=== PATIENT | male | born 1985 | race Caucasian/White ===

== ENCOUNTER 2018-09-03 09:00 | Outpatient (RCR) | payer BC, SELFPAY ==
--- NOTE | 2018-09-03 09:05 | BH.SGPN.GN ---
Behaviors/Verbalizations/Mental Status: []Client alert and oriented, neatly dressed and groomed. Eye contact intense. Motor activity appropriate. Speech soft. Affect constricted, mood anxious. Thoughts linear, logical, no signs of hallucinations or delusions. Reviewed client?s symptom tracker, no risk for suicidal ideation, plan, or intent as of 09/03/18. Client Response/Progress/Benefit: []Client responded well to session, receptive to supportive statements, first day in IOP. Client reports feeling ?more up and less stressful? today. Client stated he dealt with mental health and substance use in the past, client is currently one and a half years sober. Client shared has been struggling with his mental health for over a month. Client reported ?I?ve been miserable...I don?t eat, I don?t leave my house, I have no energy.? Client received words of encouragement from peers which client seemed to appreciate. Client shared he also fears losing his job due to missing work for mental health reasons. Client reported he hopes IOP helps him find purpose and goals for life. Client appeared to benefit from gaining support from peers. Client to start IOP to improve mood and prevent decompensation.
--- NOTE | 2018-09-04 09:05 | BH.SGPN.GN ---
Behaviors/Verbalizations/Mental Status: [] Pt eye contact fair, casually dressed, motor activity restless, speech normal rate and tone, mood anxious, congruent affect, thoughts linear and logical, no evidence of delusions or hallucinations. Reviewed client?s symptom tracker, no signs of suicidal ideation, plan, or intent as of today. Client Response/Progress/Benefit: [] Client reported yesterday he left IOP feeling more optimistic. Client shared he was able to get more things accomplished after leaving [facility] yesterday because felt more motivated and positive. Client reported he recognizes having group to go to every morning is a good thing because he did have something to do he would just sleep the day away. Client shared prior to starting IOP he has been sleeping, isolating, not working and not functioning. Client seemed to benefit from support from peers and expressing thoughts and feelings. Client to continue IOP level of care to stabilize moods, increased healthy coping skills, and prevent decompensation. Narrative Note: []
--- NOTE | 2018-09-04 10:10 | BH.SGPN.GN ---
Behaviors/Verbalizations/Mental Status: []Client alert and oriented, neatly dressed and groomed. Eye contact intense. Motor activity appropriate. Speech within normal limits. Affect congruent-eyes looking tearful, mood anxious, dysthymic. Thoughts logical, but slow to respond to questions, no signs of hallucinations or delusions. Client Response/Progress/Benefit: []Client responded well to session, active participant. Client appeared to connect with the quote sharing, ?a tough situation can make someone learn and find positives.? Client identified crisis as an unforeseen situation with unresolved solutions. Client reported anything could be a crisis depending on one?s current life stressors and sometimes people do not use healthy coping skills when in crisis. Client stated everyone kaity and experiences crisis differently. Client selected a visual that represents client?s thoughts and emotions during crisis. Client shared in crisis he feels torn and ?like it?s hard to wrap my head around things.? Client also shared he feels loss of control, inconsistent, and lost. Client reflected that he has a hard time asking for help in crisis because client has always ?dealt with things on my own.? Client appeared to benefit from gaining insight to what crisis is like for him. Client?s second day in IOP, to continue to prevent decompensation and increase mood stability.
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
--- NOTE | 2018-09-04 16:34 | BH.MDN ---
Multi-Disciplinary Note - Note 60-min Individual Time Started:: 12:10 Date: 09/04/18 Purpose of session/treatment goals addressed:: Purpose of session was to assess pt's current symptoms and stressors. Spent session reflecting on first day in IOP and processing pt's current thoughts and emotions. Eye Contact:: Fair Motor Activity:: Restless Appearance:: Neat Speech:: Appropriate Mood:: Anxious, Depressed, Other - tearful Affect:: Congruent Thoughts:: Logical, Circular, No evidence of hallucinations/delusions noted Staff Interventions:: Therapist utilized open ended questions to elicit pt's current symptoms and stressors. Therapist processed pt's worries and concerns. Therapist provided support by validating pt's current emotions. Therapist assisted pt with focusing on what he can do today to help him move forward. Client Response:: Pt reported although it was overwhelming at first to be in a group setting it helped him be around others that are experiencing similar things to him. Pt shared although he was really anxious last night about coming to [facility], having something to do in the morning motivated him to get up and out of the house today. Pt reported for the past month he hasn't been doing much of anything besides sleeping. Pt shared he struggles with being able to get out of bed and inability to complete tasks for work. Pt tearful throughout session when reflecting on his past choices and how he hasn't felt content in his life for a long time. Pt reported in high school he started drinking heavily which continued until he sought treatment in 2017. Pt shared he sought help for his drinking when he couldn't go more than an hour and a half before needing a drink. Pt reported he was no longer funtioning, recognized he needed to get help or things would only get worse for him. Pt shared he is frustrated because he thought he was finally doing better since getting sober, but when the depressive symptoms came he again can't function. Pt recognizes getting help now can help him get back on his feet and move towards being content with his life. Pt reported his goal for today is to not take a nap and to follow through with picking his children up. Risks/Concerns:: Pt denies current suicidal thoughts, intention and plan. Pt future focused, children serve as protective factor. Progress Toward Goals/Plan:: No progress observed given first day in IOP, session focused on processing first IOP day, processing current emotions and thoughts, and identifying goals for the day. Pt to continue IOP level of care to improved mood stability, increase healthy coping skills, and prevent decompensation. Time Stopped:: 13:00
--- NOTE | 2018-09-05 10:49 | BH.NA ---
Physical Data - Vital Signs Pulse Rate: 72 Respiratory Rate: 14 Blood Pressure: 112/89 - Height/Weight Height: 1.75 m Weight:: 64.864 kg Weight in Pounds: 143.0 lbs Current Medication Compliance - Medication Compliance Do you take your medication as prescribed?: Yes Do you need assistance with taking medication?: No Have you had side effects from medication?: No Nutritional History - Appetite Nutritional Instructions:: If client shows signs of a swallowing problem, weight change of 10 pounds or more in the last month, or is on a diabetic diet, the physician will review and request a dietitian consult, as appropriate. All unintentional weight loss will be referred to the physician for decision on need for dietitian consult. Describe your appetite:: Fair Have you noticed a change in your eating habits lately?: Yes - appetite had been poor, but has noticed some improvement Functional Assessment - Sleep Pattern Describe any problems with sleeping: Client describes difficulty falling and staying asleep linked to rumination and racing thoughts. - Activities Motor Activity:: Functional Sensory/Communication Assess - Dental Problems Do you have any dental problems?: None - Vision Problems Do you have any vision problems?: None - Hearing Problems Do you have any hearing problems?: Adequate - Communication Problems Do you have difficulty understanding what people are saying?: No Do you have trouble putting your thoughts into words or expressing what you want to say?: No Do people ever have trouble understanding what you say?: No What is your primary language?: [place] Learning Assessment - Learning Barriers Learning Barriers:: Ready to learn Medical Problems/History - Cardiac Conditions Cardiovascular: Hypertension - Pain Assessment Do you have acute or chronic pain?: No Substance Abuse - Substance Abuse Please describe substance abuse in the last 30 days:: Client notes a significant history of ETOH dependence/abuse - has been sober 1y4m. Tobacco use of 1.5 cans chewing tobacco daily. Remote history of illicit substance use. Mental Status Summary - Mental Status Significant Findings/Observations on Appearance and Mood:: Client is A&Ox4, cooperative with interview. Makes good eye contact. Hyperactive. Neat grooming and hygiene. Speech is clear and of regular rate and volume. Moderate depression and anhedonia noted. Mood congruent affect. Logical associations and normal process. No symptoms of delusions. Denies hallucinations, HI, or SI. Suicide Assessment - Suicidal Ideation Are you currently or have you been suicidal in the past?: No Physician Notification: If Active suicidal thoughts/Will not contract for safety is checked, contact physician and document in the Physician Notification section below. Past Psychiatric History - MH Treatment Hx Past Psychiatric Medications:: trazodone, trintellex, paroxetine, celexa, topamax Fall Risk Assessment - Age Age: Less than 60 - Mental Status Mental Status: Willing & able to ask for assistance when needed - Physical Status Physical Status: No problems - Impairments Impairments: None - Elimination Elimination: Continent AND independent - Gait or Balance Gait or Balance: Walks independently - Hx of Falls History of falls in the past 6 months: No known history - Medications/Substances Psychotropics:: Antidepressants, Mood stabilizers, Antihistamines (e.g. Benadryl) Others:: Antihypertensives Medications/substances used within the past 24 hours or ordered to administer: 3 or more of the medications/substances listed above - Total Score Total Points:: 2 Physician Notification - Physician Notification Physician Notified: Zakiya Hilton Method of Notification: Face to Face Comments: treatment planning discussion and recommendation exchange RN Summary of Impressions - Impressions Recommendations: Include psychiatric and medical issues, treatment planning recommendations, and discharge planning needs. Impressions: Psychiatric Issues: bipolar 2, PTSD, ETOH dependence Impression: General Medical Conditions: HTN - Level of Care How do the client's current symptoms and functional deficits support need for this level of care?: Client endorses worsening of his mental health symptoms for about 1 year, but much worse the past 4 weeks. He notes that he is unable to concentrate on his work during the day, frequently losing focus and procrastinating. He works from home most of the time and finds that his motivation has been lacking recently too. Juaquin (RD) notes that most of his decompensation is due to his recent divorce and loss of custody of his child, he also endorses remorse and guilt regarding his ETOH abuse and the problems that caused in his relationships. IOP will help prevent further decompensation and promote gains.
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
--- NOTE | 2018-09-05 12:47 | BH.DR.ITP ---
Initial Treatment Plan - Patient Information Visit Information: ADMISSION DATE: EXPECTED LOS: 4-6 weeks Diagnoses:: Bipolar 2 - Problems/Symptoms Problem #1:: Mood instability Symptom:: Depression, anhedonia, isolation, biologic disruption of sleep and appetite Problem #2:: Anxiety Symptom:: Rumination Problem #3:: Substance use
--- NOTE | 2018-09-08 09:05 | BH.SGPN.GN ---
Behaviors/Verbalizations/Mental Status: [Client maintained good eye contact throughout, provided input to discussion. A few minutes late to group. Client was neat and casually dressed, appropriate grooming/hygiene. Motor activity WNL. Client speech was a normal rate and tone - positive, mood positive and optimistic - expressed as tired, affect congruent with mood, bright, thoughts linear and logical, no evidence of delusions or hallucinations. Therapist reviewed client?s symptom tracker to assess for intensity of mental health symptoms and identify risk for suicide. No signs of suicidal ideation, plan, or intent to date.] Client Response/Progress/Benefit: [Client was receptive of session and remained engaged in the discussion throughout. He indicated feeling tired today as client had a long but enjoyable weekend. He went on to explain that he had been able to have his kids overnight for the weekend which was something he had been a little anxious about doing. CLient discussed this being a positive experience as he has been wanting to further develop a relationship with his children. Client benefited from the supportive group environment and indicated connecting with experiences and frustrations fellow participants described related to setting healthy boundaries and limits with self and others. CLient continues to struggle in actively challenging and replacing some of his distorted thinking patterns however is displaying progress in willingness to begin improving overall mental health awareness and current barriers. Recommended continued IOP tx to prevent decompensation and continue to work towards improving mental health symptom management. ] Narrative Note: []
--- NOTE | 2018-09-08 10:30 | BH.SGPN.GN ---
Behaviors/Verbalizations/Mental Status: []Client alert and oriented, neatly dressed and groomed. Eye contact intense. Motor activity appropriate. Speech within normal limits. Affect congruent, mood anxious, euthymic Thoughts linear, logical, no signs of hallucinations or delusions. Client Response/Progress/Benefit: []Client responded well to session, active participant. Client reported one can have conflict with others or within oneself. Client reported internal conflict can lead to increased depression and negative thinking. Client identified barriers to resolving conflict such as perception, body language, and cognitive distortions. Client helped the group discuss the four different conflict resolution styles including when it is helpful and not helpful to use each style. Client shared he is happiest when he is the avoidant type, but client can ?go with the flow.? However, client recognizes he is mostly the accommodating type because he will keep his comments to himself and allow others to make decisions. Client shared he would like to become more collaborative. Client appeared to benefit from gaining awareness of how client?s current conflict resolution style impacts mental health and relationships. Client to continue IOP as he reports increase motivation, but continues to struggle with cognitive distortions and mood instability.
--- NOTE | 2018-09-08 11:35 | BH.SGPN.GN ---
Behaviors/Verbalizations/Mental Status: []Client alert and oriented, neatly dressed and groomed. Eye contact good. Motor activity appropriate. Speech within normal limits. Affect congruent, mood euthymic. Thoughts linear, logical, no signs of hallucinations or delusions. Client Response/Progress/Benefit: []Client responded well to session, active participant. Client participated in the group activity, sharing his thoughts and ideas in an assertive, respectful manner while taking others? ideas into consideration. Client stated listening to others, focusing on the main concern, and problem-solving positively impacts conflict resolution. Client helped the group identify strategies to more effectively manage conflict such as managing stress, focusing on one problem at a time, and active listening. Client to continue IOP as he reports reduced isolation, but he continues to struggle with mood instability and cognitive distortions.
--- NOTE | 2018-09-10 09:00 | BH.SGPN.GN ---
Behaviors/Verbalizations/Mental Status: [] Alert and oriented. Eye contact is good. Motor activity is appropriate. Appearance is neat. Speech is appropriate. Mood is anxious, and depressed. Affect is congruent. Thoughts are linear and logical. No hallucination or delusions noted. Client Response/Progress/Benefit: [] Pt was an active participant in group discussions. Emotion for today is clear-headed. Shared with the group that he has noticed some progress in the past 4 days. States that he feels like his thoughts are slower which has helped him complete tasks. Shared that he completed tasks that he had been avoiding (bills). Also reports more motivation and feeling more future-oriented. Reports that he is hopeful, however continues to report stress and negative thoughts. Also contemplating his relationship and whether it is beneficial to his mental wellness. Benefited from group support and feedback. Progress noted per pt report. Will continue in IOP to prevent decompensation, decrease depressive symptoms, and stabilize mood. Narrative Note: []
--- NOTE | 2018-09-10 10:15 | BH.SGPN.GN ---
Behaviors/Verbalizations/Mental Status: []Client alert and oriented, neatly dressed and groomed. Eye contact good. Motor activity appropriate. Speech within normal limits. Affect constricted, mood anxious. Thoughts linear, logical, no signs of hallucinations or delusions. Client Response/Progress/Benefit: []client responded well to session, taking notes and participating when prompted. Client contributed to discussion and activity of the emotions associated with change. Client helped the group identify ways emotions can positively and negatively impact the change process. Client seemed to connect with the stages of change, sharing belief he is in the ?transforming ideas? stage. Client reported ?I?m aware of the changes, but I?m not where I want to be.? Client appeared to benefit from processing how emotions and thoughts influence a person?s ability to manage change. Progress noted in client?s increased self-awareness, but he continues to struggle with managing depressive symptoms.
--- NOTE | 2018-09-10 15:34 | BH.MDN ---
Multi-Disciplinary Note - Note 60-min Individual Time Started:: 11:15 Date: 09/10/18 Purpose of session/treatment goals addressed:: Purpose of session was to assess pt's current symptoms and stressors. Other topics: identifying goals for treatment and gathering additional background information. Eye Contact:: Good Motor Activity:: Appropriate Appearance:: Neat Speech:: Appropriate Mood:: Anxious, Depressed Affect:: Congruent Thoughts:: Linear, Logical, No evidence of hallucinations/delusions noted Staff Interventions:: Therapist used open ended questions to elicit pt's current symptoms and stressors. Therapist processed recent progress with pt, assisting pt with identifying what has been helping him. Therapist elicited pt's thoughts about goals would like to focus on while in IOP. Therapist used probing questions to gather additional background information. Provided support by active listening and validating emotions. Client Response:: Pt reported the last couple days have been much better for him with increased productivity and reduced desire to sleep or isolate. Pt reported he has noticed his thoughts are slower and he can think more clear. Pt reported he thinks attending IOP is helping him because it gives him routine and a reason to get up in the morning. Pt reported while in IOP he'd like to work on stabilizing his moods so he doesn't have the extreme changes in moods. Pt stated he'd like to be able to get back to work and function at a productive level, versus cutting corners or lying as ways to deal with being unproductive. Pt shared he wants to decrease his depression so he doesn't sleep for 14+ hours a day and have no desire to do anything else. Pt shared he'd also like to decrease his anxiety which contributes to not wanting to get out of the house and avoiding certain tasks like making phone calls or visiting customers for his job. Risks/Concerns:: Pt denies suicidal ideation, plan or intention to date. Progress Toward Goals/Plan:: Progress noted AEB pt reporting decrease in racing thoughts and increased productivity during day. Pt early in treatment, session focused on identifying treatment goals. Pt to continue IOP level of care to stabilize moods, decrease depression, and prevent decopmensation. Time Stopped:: 12:10
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
--- NOTE | 2018-09-15 10:15 | BH.SGPN.GN ---
Behaviors/Verbalizations/Mental Status: []Client alert and oriented, neatly dressed and groomed. Eye contact good. Motor activity appropriate. Speech within normal limits. Affect congruent, mood euthymic. Thoughts linear, logical, no signs of hallucinations or delusions. Client Response/Progress/Benefit: []Pt contributed positively to discussion and listened attentively to others. Pt reported he tends to struggle with maintaining commitment to his supports, often will isolate and stop responding to his supports. Pt shared he tends to not use his support system despite knowing he has people that would be there for him if he just asked. pt identified one barrier for him that keeps him from reaching out to others to be his pride, not wanting others to know his struggles. Pt seemed to benefit increasing awareness of positive qualities of support people. Narrative Note: []
--- NOTE | 2018-09-15 11:15 | BH.SGPN.GN ---
Behaviors/Verbalizations/Mental Status: []Client alert and oriented, casually dressed and neatly groomed. Eye contact good. Motor activity appropriate. Speech within normal limits. Affect congruent. Mood anxious. Thoughts linear, logical, no signs of hallucinations or delusions. Client Response/Progress/Benefit: []Pt contributed thoughts and ideas to discussion, took notes throughout session and listened to others. Pt able to identify benefits to each of the types of support discussed. Pt reported he struggles with communicating to his support people which results in pt isolating and not using the help of others. Pt reported he will focus on building his professional help so he has something in place for when he discharges from IOP. Pt seemed to benefit from learning about the different type of support. Pt to continue IOP level of care to maintain gains, increase generalization of skills, and prevent decompensation. Narrative Note: []
--- NOTE | 2018-09-15 14:35 | BH.MDN ---
Multi-Disciplinary Note - Note 30-min Individual Time Started:: 09:20 Date: 09/15/18 Purpose of session/treatment goals addressed:: Purpose of session was to assess pt's current symptoms and stressors. Other topics: psychoeducation about distorted and unhealthy thought patterns. Eye Contact:: Fair Motor Activity:: Appropriate Appearance:: Neat Speech:: Appropriate Mood:: Anxious, Depressed Affect:: Constricted Thoughts:: Linear, Logical, No evidence of hallucinations/delusions noted Staff Interventions:: Therapist utilized open ended questions to elicit pt's current symptoms and stressors. Therapist processed current stressor of living situation. Therapist provided psychoeducation about cognitive triange, assisting pt with understanding the connection between thoughts and feelings. Therapist provided homework for pt to complete basic thought record. Provided support by using active listening and validating emotions. Client Response:: Pt reported he is feeling stressed about current situation with his living situation because he asked his ex-girlfriend to move out of his house since they broke up. Pt stated his ex will not move out, which resulted in pt filing eviction papers. Pt open to discussion about different ways to communiate with his ex-girlfriend so he doesn't increase conflict between the two. Pt connected with the cognitive triangle, able to recognize how the way he thinks can maintain his negative and unhealthy coping skills. Pt identified a unhealthy thought he often has is I don't want to call my friends back because they will think less of me for needing mental health help. Pt connected this thought results in him feeling anxious and avoiding making any phone calls to friends. With assistance pt able to reframe anxious thought to a more realistic thought. Pt agreeable to complete thought log for homework to increase awareness of his unhealthy thinking patterns. Risks/Concerns:: Pt denies suicidal ideation, plan or intention to date. Progress Toward Goals/Plan:: Pt making progress AEB pt recognizing his relationship was unhealthy and taking steps to end relationship. also showing increased awareness into how his thoughts impact his anxious and depressed moods. Pt continuing to struggle with reaching out to peers for support due to distorted and anxious thoughts related to fear of being judged. Pt to continue IOP level of care to stabilize moods, increase healthy coping, and prevent decompensation. Time Stopped:: 09:50
--- NOTE | 2018-09-17 11:47 | BH.MTP_ITS ---
[facility] - Patient Information Program Physician:: Dr. Hilton Primary Therapist:: Kyung Hong, [facility] - Psychiatric Diagnoses Psychiatric Diagnoses:: Bipolar 2 disorder-cannot rule out substance-induced mood disorder. Anxiety. PTSD. Alcohol use disorder-remission. Nicotine use disorder (chewing tobacco) Diagnosis Code(s):: F31.81 - Estimated LOS Estimated LOS (in weeks):: 6 Problem/Goal #1 - Problem/Goal #1 Stated Goal:: Client will increase mood stability, decrease depressive symptoms, and isolative behaviors due to Bipolar II disorder through Intensive Outpatient Program. Description of Barriers: Pt's isolative behavior, distorted thought patterns, increased sleeping, decreased motivation, and constant worry could be barriers to progress and treatment. Functional Impact: Pt not functioning at baseline AEB pt not completing ADL's, sleeping majority of day, not able to complete tasks at work. Pt on FMLA from work due to mental health symptoms interferring with ability to fucntion. Pt's isolative behaviors have negatively impacted his social connections and relationships. Goal Relevant Strengths/Supports: Pt is intelligent, resilient, and verbalizes motivation to get better. - Objectives Objective #1 Stated Objective: Client will learn and utilize 2-3 healthy coping strategies to manage depressive symptoms. Interventions: Therapist will assist client in learning internal coping strategies to manage depressive symptoms, along with helping client identify triggers. Discharge Criteria: Client will have achieved this goal when can verbalize and has practiced at least 2 healthy coping strategies. Target Date: 10/15/18 Review Date: 10/01/18 Objective #2 Stated Objective: Pt will decrease depressive and manic symptoms AEB pt?s score on the DSM 5 cross-cutting measure and improve pt?s daily functioning. Interventions: Through groups and individual therapy, pt will be provided with education on cognitive distortions, mistaken beliefs, and identifying and combating negative self-talk. Therapist will assist pt with getting back into the activities she once enjoyed as well as increasing healthy coping strategies. Discharge Criteria: Pt will have met this goal when pt?s score on the DSM 5 cross cutting measure for depression and nell has been decreased and per pt?s report daily functioning has improved. Target Date: 10/15/18 Review Date: 10/01/18 Problem/Goal #2 - Problem/Goal #2 Stated Goal:: Stabilize anxiety level while increasing ability to function on daily basis. Description of Barriers: Pt's isolative behavior, distorted thought patterns, increased sleeping, decreased motivation, and constant worry could be barriers to progress and treatment. Functional Impact: Pt not functioning at baseline AEB pt not completing ADL's, sleeping majority of day, not able to complete tasks at work. Pt on FMLA from work due to mental health symptoms interferring with ability to fucntion. Pt's isolative behaviors have negatively impacted his social connections and relationships. Goal Relevant Strengths/Supports: Pt is intelligent, resilient, and verbalizes motivation to get better. - Objectives Objective #1 Stated Objective: Client will identify and replace 2-3 anxious thinking patterns that reinforce anxious symptoms. Interventions: Therapist will assist client in developing an awareness of the cognitive messages that reinforce anxious thinking. Therapist will also assist client in challenging anxious thinking patterns. Discharge Criteria: Client will have achieved this goal when can identify at least 2 anxious thinking patterns, replace anxious thinking with more positive, rational messages. Target Date: 10/15/18 Review Date: 10/01/18 Objective #2 Stated Objective: Pt will decrease anxious symptoms AEB pt?s score on the DSM 5 cross-cutting measure improve pt?s daily functioning. Interventions: Through groups and individual therapy, pt will be provided education about anxiety?s impact on body and common physiological reaction to anxiety. Therapist will teach pt appropriate breathing techniques and build healthy coping skills to manage daily anxieties. Discharge Criteria: Pt will have met this goal when pt?s score on the DSM 5 cross cutting measure for anxiety has been decreased and per pt?s report daily functioning has improved. Target Date: 10/15/18 Review Date: 10/01/18
--- NOTE | 2018-09-17 14:46 | BH.COMM ---
Communication Note - Communication with Client Communication Note: Did not show for IOP today. Called pt and he reports that he fell asleep. Will be at IOP tomorrow.
--- NOTE | 2018-09-18 09:05 | BH.SGPN.GN ---
Behaviors/Verbalizations/Mental Status: [] Eye contact is good. Motor activity is appropriate. Appearance is neat. Speech is Appropriate. Mood is depressed. Affect is flat. Thoughts are linear and logical. No evidence of psychosis. Reviewed daily check in sheet and no reports of suicidal ideations or intent. Client Response/Progress/Benefit: [] Pt was quiet however attentive during group. Spoke only when prompted. Emotion for today was optimistic however reported that yesterday had overwhelming depression which led to isolation and laying in bed all day. Would not elaborate more on this and therapist did not pry. Group praised him for showing up today. Regression noted as he isolated, ruminated, and avoided responsibilities yesterday due to depression. Benefited from group support and encouragement. Will continue in IOP to prevent further decompensation, stabilize depression, and increase functioning to return to work. Narrative Note: []
--- NOTE | 2018-09-18 10:12 | BH.SGPN.GN ---
Behaviors/Verbalizations/Mental Status: []Client alert and oriented, neatly dressed and groomed. Eye contact intense. Motor activity appropriate. Speech within normal limits. Affect constricted, mood anxious. Thoughts linear, logical, no signs of hallucinations or delusions. Client Response/Progress/Benefit: []Client responded well to session, quiet, but taking notes throughout. Client discussed coping skills with the group and how one develops coping skills. Client stated people use unhealthy coping skills because they provide instant gratification and are easier to remember. Client shared developing healthy coping skills takes time and self-awareness. Client participated in a group activity. Client shared having a strong foundation of internal and external coping skills can keep a person stable. Client shared his foundation is not yet sturdy as client needs more internal coping skills. Client appeared to benefit from learning about how one learns coping skills and from recognizing the importance of having internal and external coping skills. Client progress variable as he continues to report low motivation, depressed mood, and issues with sleep.
--- NOTE | 2018-09-18 11:10 | BH.SGPN.GN ---
Behaviors/Verbalizations/Mental Status: []Client alert and oriented, neatly dressed and groomed. Eye contact poor. Motor activity appropriate. Speech within normal limits- making inappropriate side comments at times. Affect congruent, mood anxious. Thoughts linear, logical, no signs of hallucinations or delusions. Client Response/Progress/Benefit: []Client responded well to session, quiet, but taking notes. Client listened as the group discussed the different categories of coping skills and the purpose each one serves in managing mental health symptoms. Client created a coping skills menu with a coping skill from each category- distraction, grounding, emotional release, self-love, and thought challenge. Client?s menu included: reading, being in nature, learning about birds, the 5 senses, self-care, and radical acceptance and avoiding negative people. Client stated having a variety of coping skills helps one more effectively manage emotions. Client appeared to benefit from gaining numerous coping skills and learning the pros and cons of each coping skill category. Client to continue IOP to prevent decompensation and reduce depressive symptoms.
--- NOTE | 2018-09-22 09:03 | BH.SGPN.GN ---
Behaviors/Verbalizations/Mental Status: [Client maintained fair eye contact, casually and neatly dressed, motor activity WNL - at times appearing restless AEB bouncing legs, speech normal rate and tone, mood anxious, depressed, affect congruent, constricted at times, thoughts linear and logical, no evidence of delusions or hallucinations. Therapist reviewed client?s symptom tracker to assess for intensity of mental health symptoms and identify risk for suicide. No signs of suicidal ideation, plan, or intent to date.] Client Response/Progress/Benefit: [Client arrived late to session however did well to engage upon doing so. Client indicated that he was able to connect well with the various stories shared by fellow participants regarding difficulties in using healthy means for coping mental health symptoms. Benefited from the shared group experience as well as being able to connect with fellow participants. Client indicated specifically connecting with fellow participants who are struggling with substance use. Client discussed previously relying on alcohol as a means of coping with anxiety and although he is no longer utilizing substances he continues to struggle with unhealthy means for coping. Client went on to explain recent increase in isolation as well as staring at the computer screen when feeling increasingly depressed or anxious. Client indicated that he believes current difficulties with falling asleep and maintaining sleep have negatively contributed to current mental health status. Displaying progress regarding increased levels of insight related to factors and potential triggers contributing to increased anxiety and depression; however, continues to struggle with effective implementation of healthy skills identified. Client recommended continued IOP treatment in order to further improve healthy management of mental health symptoms.] Narrative Note: []
--- NOTE | 2018-09-22 10:32 | BH.SGPN.GN ---
Behaviors/Verbalizations/Mental Status: [] Pt eye contact good, casually dressed, motor activity appropriate, speech normal rate and tone, mood anxious and depressed, congruent affect, thoughts linear and intact, no evidence of delusions or hallucinations. Client Response/Progress/Benefit: [] Client listened attentively to others, contributed his ideas and thoughts at times to discussion. Client could relate to others that believing a situation or opportunity is something that is impossible to do could result in nothing changing. Client reported he can think of several situations in which he thought it was impossible to overcome difficulties, which resulted in him holding himself back. Client connected with the idea of having a growth mindset because client stated helps to see the differences between growth and fix mindsets. Client seemed to benefit from increased awareness of what growth mindset is and how it could be beneficial with overcoming what appears to be impossible. Narrative Note: []
--- NOTE | 2018-09-22 11:37 | BH.SGPN.GN ---
Behaviors/Verbalizations/Mental Status: [] Pt eye contact good, casually dressed, motor activity appropriate, speech normal rate and tone, mood euthymic, congruent affect, thoughts linear and intact, no evidence of delusions or hallucinations. Client Response/Progress/Benefit: []Client listened attentively to others, took notes throughout, and contributed thoughts to discussion. Pt identified overcoming addiction to be something that seemed impossible, but with support and asking for help he was able to get sober. Pt contributed ideas when brainstorming strategies and skills to overcome what seems impossible. Client reported he connected with need to be aware of negative thought patterns and work on reframing. Pt seemed to benefit from reflecting on past situations he was able to overcome despite seeming impossible at the time. Pt to continue IOP level of care to stabilize moods, increase generalization of skills, and prevent decompensation. Narrative Note: []
--- NOTE | 2018-09-23 13:50 | BH.COMM ---
Communication Note - Communication with Client Communication Note: Client no show no called IOP today. Therapist called left message asking client to return phone call to ensure everything is okay.
--- NOTE | 2018-09-24 09:10 | BH.SGPN.GN ---
Behaviors/Verbalizations/Mental Status: [] Eye contact is good. Motor activity is appropriate. Appearance is neat. Speech is Appropriate. Mood is anxious and depressed. Affect is congruent. Thoughts are linear and logical. No evidence of psychosis. Reviewed daily check in sheet and no reports of suicidal ideations or intent. Client Response/Progress/Benefit: [] Pt spoke very little and only when prompted. Appeared distracted and distant however reported emotion for today is excited. Shared a positive is that he completed some household tasks yesterday which included laundry. Another positive he reported was in regards to the weather. He choose not to elaborate on anything else for this group session. No progress noted and body language appears incongruent with reported mood. Will continue in IOP to improve functioning, prevent decompensation, and stabilize mood. Narrative Note: []
--- NOTE | 2018-09-24 10:10 | BH.SGPN.GN ---
Behaviors/Verbalizations/Mental Status: [] Pt eye contact good, casually dressed, motor activity appropriate, speech normal rate and tone, mood anxious, congruent affect, thoughts linear and intact, no evidence of delusions or hallucinations. Client Response/Progress/Benefit: []Pt engaged in session AEB pt sharing thoughts and feelings and listened attentively to others. Pt connected with the quote reported fears we don't face become our limits. Pt stated if we can't make change because of fear then we will stay stuck. Pt shared the following are things that keep him stuck: self-destructive behavior, avoidance of problems, guilt from past, fear of unknown, current living situation, not wanting to leave comfort zone, difficulty concentrating, minimizing problems, and lack of confidence in decision. Pt identified self-destructive behavior to be keeping him stuck the most. Pt seemed to benefit from increased awareness of what is contributing to pt staying stuck and not moving forward. Narrative Note: []
--- NOTE | 2018-09-24 11:15 | BH.SGPN.GN ---
Behaviors/Verbalizations/Mental Status: [] Pt eye contact good, casually dressed, motor activity appropriate, speech normal rate and tone, mood anxious, congruent affect, thoughts linear and intact, no evidence of delusions or hallucinations. Client Response/Progress/Benefit: [] Pt listened attentively to others and was engaged in creating small goals for the next couple of weeks. Pt reported for his plan he is focusing on increasing self-care. Pt shared his first small goal is to read 3 educational articles a day to help him grow professionally. Pt reported his second small goal is to exercise three times a week to improve health, increase self-confidence, and view of self. Pt shared third small goal will be to decrease hurtful comments says to others by writing the statements down and throwing away. Pt stated the last goal he will focus on is to remove toxic relationships from his life. Pt seemed to benefit from creating small goals he can focus on throughout the month. Pt to continue IOP level of care to decrease anxiety, improve daily functioning and prevent decompensation. Narrative Note: []
--- NOTE | 2018-09-25 09:05 | BH.SGPN.GN ---
Behaviors/Verbalizations/Mental Status: []Client alert and oriented, neatly dressed and groomed. Eye contact intense. Motor activity appropriate. Speech within normal limits. Affect constricted, mood dysthymic. Thoughts linear, logical, no signs of hallucinations or delusions. Reviewed client?s symptom tracker, no risk for suicidal ideation, plan, or intent as of 09/25/18. Client Response/Progress/Benefit: []Client responded well to session, quiet and appearing low energy, but participating when prompted. Client reports feeling ?neutral? today. Client identified two positives and a stressor for today. Client?s positives include not having to pay for his car yet and making into group ?closer to being on time.? Client?s stressor is his car is in the shop. When asked how client was progressing with his goals and managing symptoms, client shared ?I still have problems, but I think I?m coping.? Client appeared to benefit from reflecting on positives. Client to continue IOP to prevent decompensation and increase mood stability as client continues to struggle with sleep issues and isolation.
--- NOTE | 2018-09-26 09:01 | BH.SGPN.GN ---
Behaviors/Verbalizations/Mental Status: [Client maintained fair eye contact - appearing easily distracted throughout, often around rooms at various things. Casually and neatly dressed, appropriate grooming/hygiene. Motor activity restless - appearing on edge or agitated - AEB Client tensed muscles, shaking legs, picking at face. Client speech was a normal rate and tone, mood anxious, agitated, affect congruent with mood, thoughts linear aand logical - content appearing preoccupied in nature - distracted by own thoughts, no evidence of delusions or hallucinations. Therapist reviewed client?s symptom tracker to assess for intensity of mental health symptoms and identify risk for suicide. No signs of suicidal ideation, plan, or intent to date.] Client Response/Progress/Benefit: [Client receptive of session and appeared to benefit from actively trying to focus on other participants check-ins. He appeared distracted by his own thoughts and indicated ongoing struggles with getting enough sleep as well as feeling unable to focus fully as he has been focused on a the urge to pick at newly developed acne on his face. CLient indicated finding the urge to currently be preoccupying a portion of his thoughts. Client was able to somewhat focus and provide input when given prompts. Client discussed ongoing difficulties in establishing a suitable custody plan with his ex- that will allow client to avoid ongoing stress and arguing well also ensuring his children become used to his home. Client did well to identify ways he has been focusing on the small positives and indicated he has been able to focus on the moment when spending time with his children. Client however continues to express difficulties in managing depressive sx when alone duen to lack of motivation or desire and would benefit from continued IOP tx to improve identification and application of healthy means for coping.] Narrative Note: []
--- NOTE | 2018-09-26 10:12 | BH.SGPN.GN ---
Behaviors/Verbalizations/Mental Status: []Client alert and oriented, neatly dressed and groomed. Eye contact avoidant. Motor activity slowed. Speech within normal limits. Affect congruent to mood, mood anxious, depressed. Thoughts linear, logical, no signs of hallucinations or delusions. Client Response/Progress/Benefit: []Client responded somewhat well to session, less engaged than previous sessions, sharing ?I feel really off today.? Client reported some stress is positive, but too much stress can lead to increased depression, anxiety, and physical problems. Client helped the group discuss how stress impacts a person emotionally, physically, behaviorally, and cognitively. Client identified current stressors in his stress jar to be family and relationship issues, dealing with his mother, managing mental health, procrastination, change, and money. Client shared his stress jar is full which has been impacting his sleep and concentration. Client appeared to benefit from identifying current stressors and how they are impacting client. Progress variable as client continues to struggle with chronic sleep issues.
--- NOTE | 2018-09-26 13:38 | BH.MDN ---
Multi-Disciplinary Note - Note 60-min Individual Time Started:: 11:05 Date: 09/26/18 Purpose of session/treatment goals addressed:: Purpose of session was to assess pt's current symptoms and stressors. Other topics: challenging distorted thought patterns and goal setting. Eye Contact:: Fair Motor Activity:: Appropriate Appearance:: Neat Speech:: Appropriate Mood:: Anxious, Dysthymic Affect:: Congruent Thoughts:: Logical, No evidence of hallucinations/delusions noted Staff Interventions:: Therapist used open ended questions to elicit pt's current symptoms and stressors. Therapist probed for more information in regards to recent symptoms. Therapist provided psychoeducation about impact lack of sleep can have on functioning. Therapist gently challenged pt's distorted thought patterns, assisted pt with reframing. Therapist assisted pt with identifying goals for the weekend. Therapist provided support by using active listening and validating emotions. Client Response:: Pt reported I'm really struggling today. Pt explained he feels easily distracted, slow to process, and not like myself. Pt shared he has only been able to sleep about 3 hours per night this week. Pt reported he can't fall asleep, but doesn't know why. Pt connected with therapist psychoedcuation about impact not enough sleep can have on functioning. Pt reported despite not getting enough sleep he often will have plenty of energy throughout the day and is often restless. Pt stated he can't sit down and watch a tv show, constantly needs to do something that is stimulating. Pt reported he hasn't been able to complete his goal of reading 3 articles a day that are unrelated to what is wrong with me. Pt reported he can connect with the potential problems that could ensue if he continues to research disorders. After therapist noted the pt's reaction in group on Saturday about getting ink on his hands, pt noted for the past several weeks he has an obsession with needing his hands to be clean. Pt reported when he feels his hands are unclean or sweaty he has to wash them, estimated he is washing his hands 20+ times a day. Pt noted other obsessive behavior he has, mostly to do with cleaning. Pt stated he thinks some of this excessive behavior is due to not having anything to do throughout the day. Pt worked with therapist to identify areas in his life that he would like to focus on. Pt shared he would like to work on increasing his social connections because right now he is ignoring anyone that calls him. Pt reported his goal is to reach out to one friend over the weekend. Pt shared he also wants to find hobbies that are unrelated to drinking alcohol. Pt open to researching various events and activities in the area that he would be willing to try. Risks/Concerns:: Pt denies suicidal ideation, plan, or intention to date. Pt future focused. Children serve as protective factor. Progress Toward Goals/Plan:: Pt continuing to show progress with decreased sleep, avoidance, and isolative behaviors. Pt decompensating in certain areas AEB pt reporting decreased mood stability, difficulty focusing, and decreased sleep. Pt struggling with consistently applying skills which seems to be hindrance to treatment progress. Pt to continue IOP level of care to improve mood stability, increase healthy coping skills, and prevent decompensation. Time Stopped:: 12:05
--- NOTE | 2018-09-29 09:05 | BH.SGPN.GN ---
Behaviors/Verbalizations/Mental Status: []Client alert and oriented, neatly dressed and groomed. Eye contact intense. Motor activity restless-picking at his face. Speech within normal limits. Affect constricted, mood anxious, fatigued. Thoughts linear, logical, no signs of hallucinations or delusions. Reviewed client?s symptom tracker, no risk for suicidal ideation, plan, or intent as of 09/29/18. Client Response/Progress/Benefit: []Client responded somewhat well to session, picking at his face and appearing preoccupied as shown by his staring. Client reported feeling ?neutral? today at first, but then with further exploration, client shared he feels detached today. Client identified stressors to be ongoing sleep issues and worrying that his medication will cause a rash as client researched this could be a side effect. Client stated he has been picking his face because of this worry. The group discussed selective bias when researching and encouraged client to challenging these anxious thoughts, so he does not continue to pick his face. Client?s positive from the weekend was spending time with his children. Client appeared to benefit from challenging negative thinking during session. Progress variable as client continues to report ongoing sleep issues and difficulty managing his intrusive thoughts.
--- NOTE | 2018-10-01 09:10 | BH.SGPN.GN ---
Behaviors/Verbalizations/Mental Status: [] Eye contact is good. Motor activity is appropriate. Appearance is neat. Speech is Appropriate. Mood is anxious. Affect is congruent. Thoughts are linear and logical. No evidence of psychosis. Reviewed daily check in sheet and no reports of suicidal ideations or intent. Client Response/Progress/Benefit: [] Pt was an active participant in group discussion. Provided appropriate feedback to peers. Emotions for today is positive States I'm moving closer to kicking my GF out of the apartment. States that he is currently living with his parents and his GF is at the apartment. Relationship is increasingly conflicted and her anger and behaviors are escalating so pt choose to move out. He has spoken with police and started the process to evict her from the apartment. Also discussed other stressors regarding ex- which continue to effect mood. Progress noted as he is starting to set boundaries and take action in toxic relationship. Benefited from group support. Will continue in IOP to stabilize mood and improve functioning to return to work. Narrative Note: []
[2018-10-03 14:23] VITALS: BP 112/89; PULSE 72; RESP 14
== END 2018-10-01 23:59 ==
LOC: BHIOP 09:00
PROVIDERS: Visit Provider Psychiatry & Neurology Psychiatry
DX: F31.81 Bipolar II disorder (principal); F41.9 Anxiety disorder, unspecified; F43.10 Post-traumatic stress disorder, unspecified; F17.220 Nicotine dependence, chewing tobacco, uncomplicated
CPT/HCPCS: H0035; 90832; 90837; 90853

== ENCOUNTER 2018-10-02 09:00 | Outpatient (RCR) | payer BC, SELFPAY ==
--- NOTE | 2018-10-02 09:00 | BH.SGPN.GN ---
Behaviors/Verbalizations/Mental Status: [] Pt eye contact good, neatly dressed, motor activity appropriate, speech normal rate and tone, mood dysthymic, congruent affect, thoughts linear and intact, no evidence of delusions or hallucinations. Reviewed client?s symptom tracker, no signs of suicidal ideation, plan, or intent as of today. Client Response/Progress/Benefit: [] Client reported he did not do too much yesterday besides go home after IOP and talked to his parents about his current living situation. Client shared the person that has been living with him is refusing to leave his house despite verbally asking her to leave and filing for eviction. Client stated on Saturday this individual raised her voice while client's children were visiting, client stated this crossed the line because he wants a peaceful home for his children. Client only able to identify one positive which was budgeting his ardha appropriately which resulted in decreased anxiety. Client continuing to struggle with utilizing his skills on a consistent basis. Client to continue IOP level of care to stabilize moods, improve daily functioning and prevent decompensation Narrative Note: []
--- NOTE | 2018-10-02 10:02 | BH.SGPN.GN ---
Behaviors/Verbalizations/Mental Status: []Client alert and oriented, neatly dressed and groomed. Eye contact fair. Motor activity restless, picking at his face. Speech within normal limits. Affect constricted, mood anxious. Thoughts preoccupied, no signs of hallucinations or delusions. Client Response/Progress/Benefit: []Client responded well to session, engaged throughout. Client appeared to connect with the quote sharing a personal experience where he turned a weakness into a strength. Client discussed self-placed barriers that keep people from reaching goals such as procrastination. Client created a visual representation of his current and desired realities in regards to mental wellness. In client?s current reality, client is stuck in the middle of several different paths and does not know what direction to take. Client shared he can see his past poor decisions and what he thought was happiness but turned out to be fake or ?p[place] happy.? Client?s desired reality depicts client picking a path to ?love, stability, satisfaction, and purpose.? In client?s desired reality he is closer to his children and there is no dishonesty. Some aspects of client?s desired reality were unrealistic such as having unlimited money, but client was receptive to gentle challenging. Client appeared to benefit from gaining awareness of what his current and desired realities look like. Client to continue IOP as he continues to struggle with internal conflict and mood instability.
--- NOTE | 2018-10-02 11:07 | BH.SGPN.GN ---
Behaviors/Verbalizations/Mental Status: []Client alert and oriented, neatly dressed and groomed. Eye contact good. Motor activity appropriate. Speech within normal limits. Affect brighter-laughing and smiling, mood anxious. Thoughts preoccupied, no signs of hallucinations or delusions. Client Response/Progress/Benefit: []Client responded well to session, engaged and providing ideas. Client identified barriers in client?s control that are keeping him from getting to his desired reality such as avoiding issues and excessive change leading to confusion. Client engaged in the group activity and was able to develop strategies to help overcome these barriers. Client reflected on the activity and shared ?it?s impossible to go through life without hitting barriers? but with problem-solving and different perspectives, one can overcome them. Client set a goal to overcome the barrier of avoiding issues. Client?s goal is ?to have what I say go? and not have to compromise. Client appeared to benefit from problem-solving strategies to overcome barriers in the moment. Progress variable as client continues to struggle with mood instability, internal conflict, and negative thought patterns.
--- NOTE | 2018-10-03 10:10 | BH.SGPN.GN ---
Behaviors/Verbalizations/Mental Status: [] Pt eye contact good, casually dressed, motor activity appropriate, speech normal rate and tone, mood dysthymic, constricted affect, thoughts linear and intact, no evidence of delusions or hallucinations. Client Response/Progress/Benefit: []Pt listened attentively to others and contributed thoughts and feelings throughout group. When processing the quote pt connected with others comments that it can be hard to bounce back from failure, especially if just dwell on the failure as shown by pt nodding his head. When processing the activity pt connected it's important to not give up because even when he fails he is one step closer to finding the correct solution to help him move forward in life. Pt seemed to benefit from increased awareness of impact fear of failing can have on mental health. Narrative Note: []
--- NOTE | 2018-10-03 11:10 | BH.SGPN.GN ---
Behaviors/Verbalizations/Mental Status: [] Pt eye contact good, casually dressed, motor activity appropriate, speech normal rate and tone, mood dysthymic, constricted affect, thoughts linear and intact, no evidence of delusions or hallucinations. Client Response/Progress/Benefit: []Pt active participant AEB pt listening attentively to others and contributing to discussion. Pt reported he wants to change his definition of failure to be progress towards my desired position and a way of identifying what doesn't work. Pt reported past failures have taught him that he is capable of making the needed adjustments to succeed. Pt reported fear of failure is currently holding him back from making decisions in an effort to succeed because of knowing the consequence of failing again. Pt reported he can do the following to help him overcome fear of failure by reminding himself even if he fails he is still capable of trying again. Pt seemed to benefit from increased awareness of how fear has impacted him and learning different strategies that can help him overcome fear. Pt to continue IOP level of care to stabilize moods, improve daily functioning, and prevent decompensation. Narrative Note: []
--- NOTE | 2018-10-03 15:23 | BH.MDN_ITS ---
Multi-Disciplinary Note - Note 30-min Individual Time Started:: 09:20 Date: 10/03/18 Purpose of session/treatment goals addressed:: Purpose of session was to assess current symptoms and stressors. Other topics included: review homework from last session, progress, and review negative thought patterns. Eye Contact:: Fair Motor Activity:: Restless Appearance:: Neat Speech:: Appropriate Mood:: Anxious, Dysthymic Affect:: Congruent Thoughts:: Linear, Logical, No evidence of hallucinations/delusions noted Staff Interventions:: Therapist used open ended questions to elicit pt's current symptoms and stressors. Therapist inquired about homework from last session. Therapist elicited pt's current thoughts about treatment progress and thoughts on treatment goals. Therapist assisted pt with challenging and reframing distorted thoughts. provided support by using active listening. Client Response:: Pt reported he completed his homework from last session, but forgot to bring it from home. Pt shared he remembers that he identified reestablishing relationships as one of his top values he would like to get back to doing. Pt reported he is continuing to struggle with reaching out to his support network. Pt shared he has numerous missed calls from my core buddies, but will not call the friends back. Through exploration of barriers pt identified his barrier to be i'm afraid they will think I am crazy. Pt connected the impact his negative thoughts have on his emotions and behavior. Pt also reported he likes to appear to be doing well and in control, which he stated I don't feel I'm in control right now. Pt shared he likes the external validation that he is successful. Pt reported his living situation is a stressor because the ex-girlfriend won't leave his house. Pt stated if she doesn't leave today he will follow through with legal action to get her removed. Pt shared he recognizes now how the relationship filled a void, but was never healthy. Pt reported he does see progress compared to when he first started IOP. Pt stated he has increased awareness of his symptoms, insight into what is keeping him stuck, increased clarity, improved decision making and direction in life. Pt reported he'd like to focus on increasing his social engagement, instead of ignoring others. Pt agreeable to keep a though record to gain awareness if his thoughts are contributing to him not following through with calling back his f riends. Risks/Concerns:: Pt denies SI, plan or intention to date. Progress Toward Goals/Plan:: Pt deomnstrating progress AEB pt stating he has increased clarity, improved awareness, decreased sleeping during day, improved mood stability, and direction for his future. Pt continuing to struggle with isolative behaviors, intrusive thought patterns, and difficulty following through with established goals. Pt to contine IOP level of care to stabilize mood, decrease anxiety adn prevent decompensation. Time Stopped:: 10:00
--- NOTE | 2018-10-03 20:58 | BH.TPR ---
Treatment Plan Review Date of Admission:: 09/03/18 Date of Treatment Plan Review:: 10/03/18 Admitting Diagnoses:: Bipolar 2 disorder-cannot rule out substance-induced mood disorder. Anxiety. PTSD. Alcohol use disorder-remission. Nicotine use disorder (chewing tobacco) Current Diagnoses:: Bipolar 2 disorder-cannot rule out substance-induced mood disorder. Anxiety. PTSD. Alcohol use disorder-remission. Nicotine use disorder (chewing tobacco) Patient's Response to Treatment:: Pt engagement is variable throughout group and individual therapy sessions. At times pt will be actively engaged, contributing his thoughts and ideas to discussion and other times he is a passive participant. Pt's attendance has been a barrier to treatment progress, either to sleeping in or forgetting to attend. Pt is inconsistent with completing assigned homework from individual and group sessions. Pt continues to struggle with applying skills he has learned while in IOP. Status of Current Problems and Symptoms: Limited progress due to attendance issues and inconsistent application of skills learned. Pt struggles with managing his intrusive anxious thoughts. He continues to engage in researching medications which pt recognizes increases his anxiety and instrusive thoughts. Pt verbalizes desire to reconnect with his support network, but continues to not reach out to his friends despite setting many goals to do so. Pt continuing to engage in isolative behavior, despite pt having awareness that isolation only increases his depressive and anxious symptoms. Pt has shown progress with increased self-awareness of his symptoms and distorted thought patterns. Pt struggles with applying healthy skills that could help pt manage his symptoms. Pt also showing progress with no longer sleeping or laying in bed for 14+ hours a day. Pt reports having improved outlook on life and has direction in his life. Pt denies SI. Pt appetite is normal. Team recommends pt continue IOP level of care due to pt's mood instability and giving pt more time to generalize learned skills. Problem #1 Problem Name:: Improve mood stability, decrease depressive symptoms and decrease isolation Status of Goals:: Objective 1 - Objective not met. Pt is able to identify at least 2 healthy coping skills to help manage his depressive symptoms, however is not consistently applying skills. Objective 2 - Progress noted AEB scores on DSM 5 cross-cutting measure. On the DSM 5 cross-cutting measure at intake pt scored a 8 out of 8, with 8 being severe, on depressive subscale and at review pt scored a 5 out of 8, which indicates a decrease in depressive symptoms. On DSM 5 cross-cutting measure at intake pt scored a 7 out of 8, with 8 being severe, on the nell subscale and at review pt scored a 3 out of 8, which indicates a decrease in nell symptoms. Team Recommendations:: Team recommends pt continue current goals and objectives to allow more time to meet both goal objectives and see improvement in daily functioning. Problem #2 Problem Name:: Stabilize anxiety level while increasing ability to function on daily basis Status of Goals:: Objective 1 - Objective not met. Pt is able to identify at least 2 anxious thought patterns that increase pt's anxiety, however is not consistently applying skills to challenge or reframe unhealthy thinking. Objective 2 - Progress noted AEB pt's scores on DSM 5 cross-cutting measure. On the DSM 5 cross-cutting measure at intake pt scored a 12 out of 12, ith 12 being severe, on anxiety subscale and at review pt scored a 8 out of 12, which indicates a decrease in anxious symptoms. Team Recommendations:: Team recommends pt continue current goals and objectives to allow more time to meet both goal objectives and see improvement in daily functioning.
--- NOTE | 2018-10-06 10:10 | BH.SGPN.GN ---
Behaviors/Verbalizations/Mental Status: []Pt eye contact good, casually dressed, motor activity appropriate, speech normal rate and tone, mood anxious, congruent affect, thoughts linear and intact, no evidence of delusions or hallucinations. Client Response/Progress/Benefit: []Pt engaged in group AEB pt contributing thoughts and ideas throughout session and listened attentively to peers. When discussing resilience pt reported he was resilient when he overcame his struggle with addiction. Pt shared he has been able to bounce back from the lows and consequences of his alcoholism which had helped him gain a new perspective. Pt agreed with peers that resilience is something that can be learned and strengthened. Pt worked cooperatively with his small group to identify how the different factors can help improve one's resilience. Pt seemed to benefit from increased awareness of the different components that can help increase pt's resiliency. Narrative Note: []
--- NOTE | 2018-10-06 11:15 | BH.SGPN.GN ---
Behaviors/Verbalizations/Mental Status: []Pt eye contact good, casually dressed, motor activity appropriate, speech normal rate and tone, mood anxious and dysthymic, constricted affect, thoughts linear and intact, no evidence of delusions or hallucinations. Client Response/Progress/Benefit: []Pt engaged throughout session AEB pt contributing thoughts and ideas to discussion and listening attentively to peers. Pt worked cooperatively with others during the challenge activity. When processing activity pt reported taking decisive action helped the group be successful because didn't spend too long brainstorming solutions, instead took action by trying out various ideas/strategies to help group be successful. Pt reported the resiliency factor he wants to strengthen is keeping things in perspective. Pt noted he struggles at times with catastrophizing a situation which results in increased anxiety and avoidance of situation. Pt seemed to benefit from focusing on which resiliency factor pt would like to strengthen. Pt to continue IOP level of care to stabilize moods, increase generalization of skills and prevent decompensation. Narrative Note: []
--- NOTE | 2018-10-06 16:21 | BH.MDN ---
Multi-Disciplinary Note - Note 60-min Individual Time Started:: 09:05 Date: 10/06/18 Purpose of session/treatment goals addressed:: Purpose of session was to assess current symptoms and stressors. Other topics included: identifying barriers, setting goals, and identifying distorted thought patterns. Eye Contact:: Fair Motor Activity:: Appropriate Appearance:: Neat Speech:: Appropriate Mood:: Anxious, Dysthymic Affect:: Congruent Thoughts:: Linear, Logical, No evidence of hallucinations/delusions noted Staff Interventions:: Therapist used open ended questions to elicit pt's current symptoms and stressors. Therapist reviewed pt's previous homework from individual sessions. Therapist assisted pt with identifying barriers that are keeping him from following through with specific tasks and goals. Therapist elicited pt's goal for the day. Therapist discussed plan for continued IOP treatment. Provided support by using active listening and providing feedback. Client Response:: Pt reported he had a eventful weekend because he had to call the police because his ex-girlfriend was being verbally aggressive. Pt shared after the police left, his ex-girlfriend was willing to move out. Pt shared having his ex-girlfriend out of the house has decreased his stress. Pt reported he completed some of the thought log, but forgot to bring the assignment. Pt shared he is starting to have increased awarenss of how his thoughts negative impact how he feels and behaves. Pt reported he also did not complete the homework assignemnt of calling of his friends. Pt identified he has not reached out to his friends because he doesn't want to explain what he has been experiencing out of fear of rejection and judgement. Pt reported he likes to appear to have his life in control and marilee't want others to see him when he is not at my best. Pt did bring in completed homework assignment from several sessions having pt idnetify the top 4 values he would like to work on. Pt identified his top values to include: mental wellness, career, intimate relationships and family relationships. Pt able to identify several activities that would help him work on the identified values. Pt admitted he struggles with applying the skills and strategies discussed. Pt agreeable to reach out to one of his friends today to start working on increasing his social network. Risks/Concerns:: pt denies suicidal ideation, plan or intention to date. Pt is future focused. children serve as protective factor. Progress Toward Goals/Plan:: Pt progress with reporting improved mood, improved boundary setting, and increased self-awareness of his unhealthy thought patterns. Pt is continuing to struggle with applying the skills learned on a consistent basis. When pt does complete assigned homework he is insightful and sets SMART goals. Pt continuing to push away his support system out of fear of rejection, which could be hindrance to treatment progress. Pt to continue IOP level of care to maintain gains, increase use of healthy skills, and prevent decompensation. Time Stopped:: 10:00
--- NOTE | 2018-10-07 09:07 | BH.SGPN.GN ---
Behaviors/Verbalizations/Mental Status: [] Eye contact is good. Motor activity is appropriate. Appearance is neat. Speech is Appropriate. Mood is depressed. Affect is flat. Thoughts are linear and logical. No evidence of psychosis. Reviewed daily check in sheet and no reports of suicidal ideations or intent. Client Response/Progress/Benefit: [] Pt mainly spoke only if prompted. Attentive however restless. Check-in was very brief stating that he felt rested and shared with the group that his GF finally moved out of the apartment. Discussed briefly the benefits of this for his mental wellness. Noted progress as he was assertive with GF and was able to set strong boundaries. Will continue in IOP to prevent decompensation and improve functioning to return to work. Narrative Note: []
--- NOTE | 2018-10-07 10:10 | BH.SGPN.GN ---
Behaviors/Verbalizations/Mental Status: []Eye contact is good. Motor activity is appropriate. Appearance is casual. Speech is Appropriate. Mood is anxious. Affect is congruent. Thoughts are linear and logical. No evidence of psychosis. Client Response/Progress/Benefit: []Pt active participant as evidenced by pt contributing to discussion and engaging in group activity. Pt connected with the quote that we can create problems that aren't there just by the way we think. Pt stated his anxious thought patterns have created increased problems and challenges when trying to problem solve a situation at work. Pt stated it's important to remember there are often solutions to a problem, but some problems require additional supports and time in order to find the most helpful solution. Pt seemed to benefit from increased awareness of a problem solving method. Narrative Note: []
--- NOTE | 2018-10-07 11:20 | BH.SGPN.GN ---
Behaviors/Verbalizations/Mental Status: []Eye contact is good. Motor activity is appropriate. Appearance is casual. Speech is Appropriate. Mood is anxious. Affect is congruent. Thoughts are linear and logical. No evidence of psychosis. Client Response/Progress/Benefit: []Pt listened attentively to others and contributed to discussion. Pt reported his problem to be: isolation. Pt identified steps can take to reach solution of decreased isolative behaviors to include: identify triggers that contribute to isolative behaviors, create action plan of various social activities can engage in, deploy the counteractive activities, evaluate his plan, and replace time spent isolating with a social activity. Pt reported he believed the steps he identified to decrease isolation are manageable.Pt seemed to benefit from identifying ways to overcome one of his identified problems. Pt to continue IOP level of care to stabilize moods, decrease unhealthy coping and prevent decompensation. Narrative Note: []
--- NOTE | 2018-10-10 09:10 | BH.SGPN.GN ---
Behaviors/Verbalizations/Mental Status: [] Eye contact is good. Motor activity is appropriate. Appearance is neat. Speech is Appropriate. Mood is euthymic. Affect is flat. Thoughts are linear and logical. No evidence of psychosis. Reviewed daily check in sheet and no reports of suicidal ideations or intent Client Response/Progress/Benefit: [] Pt participated at times during the group discussions however was mostly quiet. Emotion for today is rattled. Was vague on the reason for being rattled stating that he plans on transitioning back to work next week and while anxious feels that he is ready and confident. Stated that he is currently in a much better place than he was a month ago. Progress noted per pt report. Benefited from group support and encouragement. Will continue in IOP to ensure smooth transition back to work and to prevent decompensation. Narrative Note: []
--- NOTE | 2018-10-10 10:10 | BH.SGPN.GN ---
Behaviors/Verbalizations/Mental Status: []Client alert and oriented, neatly dressed and groomed. Eye contact good. Motor activity appropriate. Speech within normal limits. Affect congruent, mood euthymic. Thoughts linear, logical, no signs of hallucinations or delusions. Client Response/Progress/Benefit: []Client responded somewhat well to session, quiet, mostly taking notes. Client reported one can have internal and external conflicts that can impact mental health and relationships. Client helped the group discuss the different types of conflict resolutions styles. Client shared his conflict resolution style depends on who client is around. Client stated his emotions and stress can impact how he manages conflict. Client appeared to benefit from learning how the different conflict styles impact mental health and relationships. Client to continue IOP as he continues to struggle with managing his emotions and negative thoughts.
--- NOTE | 2018-10-10 11:12 | BH.SGPN.GN ---
Behaviors/Verbalizations/Mental Status: [Client maintained clear and consistent eye contact. Actively provided input, attentive throughout. Appearance casual and neat, appropriate grooming/hygiene. Motor activity WNL actively taking notes. Client speech a normal rate and tone, mood euthymic smiling and joking. Affect congruent with mood. Client thoughts remained linear and logical, no evidence of delusions or hallucinations.] Client Response/Progress/Benefit: [Client receptive of session, actively engaged in activity and discussion portions of group. Client provided both insight to the group and personal examples related to factors impacting effective conflict resolution. He discussed strategies he has been trying for improving ability to manage conflict. Client benefitted from reflecting upon how improving awareness of his own emotions and challenging his perspective has improved ability to effectively manage conflict. Reports progress in this area though continued difficulties when conflict is related to something he has made his mind up. Recommended continued IOP tx to improve consistency of challenging expectations of self and others as well as continued progress towards tx goals.] Narrative Note: []
--- NOTE | 2018-10-10 13:10 | PCM.PN.BLA ---
Progress Note Patient is seen in follow-up for bipolar 2 disorder, anxiety, PTSD, alcohol use disorder. History is been obtained per interview with patient, discussion with staff, review of chart. Case discussed with treatment team. Chief complaint Mood symptoms and anxiety History of present illness Patient reports overall mood improvement and stability over the last 3 weeks. Things are going a lot better. Attributes improvement to consistency and schedule, coping skills gained through IOP, and medication compliance. Moderate depressive symptoms persist but of decreased intensity. Reports ruminative anxiety regarding access to medications and cost. No suicidal or homicidal ideation. No symptoms consistent with psychosis. Sleeping from 11:30 PM to 7:30 AM. 1 hour sleep interruption occurs nightly around 3 AM. Appetite normal. Denies nausea vomiting or diarrhea. Denies ingestion of alcohol and has remained sober. Continues to chew tobacco. Denies illicit drug use. Mental status exam Alert and oriented . No acute distress. Ambulatory with normal gait and station. Appears stated age. Casually dressed and groomed. Appropriate hygiene. Cooperative with interview. Good eye contact. No psychomotor agitation or retardation. Mood depressed but improved. Affect congruent. Speech is clear and with regular rate and rhythm. Language fluent. Thought process organized. Associations logical. Thought content significant for ruminative anxiety and themes of depression. No suicidal or homicidal ideation related or detected.. No symptoms consistent with psychosis noted or detected. Immediate recent and remote memory grossly intact. Attention and concentration are fair. Estimated intelligence and fund of knowledge average. Judgment and insight improving. Labs and testing Lab work will be requested from primary care physician. Further lab work to be obtained as needed. Diagnosis Bipolar 2 disorder-cannot rule out substance-induced mood disorder Anxiety PTSD Alcohol use disorder-remission Nicotine use disorder (chewing tobacco) Plan Continue IOP as a structured setting is necessary to maintain gains and prevent decompensation. Risk-benefit alternative of medications discussed with patient. Patient acknowledges understanding. Increase Lamictal 100 mg p.o. daily. Continue Latuda 20 mg daily. No evidence of EPS. Continue Vistaril as needed. Continue Adderall 40 mg twice daily as prescribed by outpatient provider. Encourage follow-up with outpatient psychiatric providers including Kyung Hernandez and Meghan Merida. Encouraged ongoing alcohol abstinence. Nicotine cessation encouraged. 18 minutes of Insight oriented psychotherapy regarding coping mechanisms provided. Patient acknowledges understanding and is in agreement with plan. Feels able to maintain safety. Agrees to seek help or emergency care feeling unsafe to self or others.
--- NOTE | 2018-10-13 16:16 | BH.COMM ---
Communication Note - Communication with Client Communication Note: Client no called/no showed for his scheduled IOP session today. Therapist spoke with client on the phone and client shared he forgot to call this morning. Client reported he missed due to sleep issues and conflicting appointments. Client reports plan to attend group 10/15/18.
--- NOTE | 2018-10-15 10:15 | BH.SGPN.GN ---
Behaviors/Verbalizations/Mental Status: [] Pt eye contact good, casually dressed, motor activity appropriate, speech normal rate and tone, mood euthymic, congruent affect, thoughts linear and intact, no evidence of delusions or hallucinations. Client Response/Progress/Benefit: [] Client attentive to others and contributed to discussion at times. Client connected with the discussion that there is no right time to make a change because he can easily rationalize why he should not do something or just leads to avoidance of making that needed or desired change. Client identify fear of the unknown to be a barrier to following through with change. Client reported he could connect with the stages of change, recognizing change process happens slowly over time. Client connected with the various emotions discussed and able to connect how the various emotions can impact the change process. Client seemed to benefit from increased awareness of the stages of change. Narrative Note: []
--- NOTE | 2018-10-15 11:25 | BH.SGPN.GN ---
Behaviors/Verbalizations/Mental Status: [] Pt eye contact good, casually dressed, motor activity appropriate, speech normal rate and tone, mood euthymic, congruent affect, thoughts linear and intact, no evidence of delusions or hallucinations. Client Response/Progress/Benefit: []Pt active participant AEB contributing thoughts and ideas to discussion, listening to others, and taking notes throughout. During challenge activity pt would take charge and not consider other group members ideas or thoughts. Pt struggled with verbalizing his ideas in a collaborative way and often was authoritative. Pt connected that problem solving or thinking outside the box to be helpful strategy when making a personal change. Pt connected with the decisional balance tool, able to see the how this tool can help him when in the contemplation stage of change. Pt seemed to benefit from group identifying various strategies that can help improve following through with identified personal change. Pt to continue IOP level of care to maintain gains, increase generalization of skills, and prevent decompensation. Narrative Note: []
--- NOTE | 2018-10-15 14:45 | BH.MDN ---
Multi-Disciplinary Note - Note 30-min Individual Time Started:: 09:20 Date: 10/15/18 Purpose of session/treatment goals addressed:: Purpose of session was to assess pt's current symptoms and stressors. Other topics: processing returning to work. Eye Contact:: Fair Motor Activity:: Appropriate Appearance:: Casual Speech:: Appropriate Mood:: Anxious Affect:: Congruent Thoughts:: Linear, No evidence of hallucinations/delusions noted Staff Interventions:: Therapist used open ended questions to elicit pt's current symptoms and stressors. Therapist processed pt's worries about returning to work. Therapist assisted pt with identifying progress has made since started IOP. Therapist helped pt with reframing and challenging negative and anxious thoughts in regards to returning back to work. Therapist provided support by validating emotions and active listening. Client Response:: Pt reported he is relieved the ex-girlfriend stressor is not something he has to worry about now that she has moved out. Pt shared feeling stressed and anxious about returning to work. Pt reported he recognizes he is in a better mindset compared to when he first started the program. Pt worked with therapist to challenge anxious and distorted thought patterns in regards to returning back to work. 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 Pt agreed it would be helpful to develop a statement that he can have prepared to communicate to his clients. Risks/Concerns:: Pt denies suicidal ideations, plan or intention to date. Progress Toward Goals/Plan:: Pt experiencing increase in anxious symptoms which can be attributed to pt returning back to work, which prior to starting IOP was a signficiant life stressor. Pt is able to connect he has made progress since starting IOP and is overall in a much better place mentally. Pt reported having increased self-confidence and ability to challenge negative thoughts. Pt continuing to struggle with reaching out to social supports. Pt progress could be hindered if continues to stay disconnected from positive people in his life. Pt to continue IOP level of care to help with transition back to work, increase social supports, and prevent decompensation. Time Stopped:: 09:50
--- NOTE | 2018-10-17 13:47 | BH.COMM ---
Communication Note - Communication with Client Communication Note: Pt no show/no called IOP today.
--- NOTE | 2018-10-20 18:43 | BH.COMM ---
Communication Note - Communication with Client Communication Note: Pt no show/no called. Therapist called pt and left voicemail asking him to return call. Therapist did not return phone call so therapist called pt's emergency contact and left a voicemail. Pt did call back at end of day, reporting he was okay and confirmed he would be attending IOP on Saturday and Saturday of this week.
--- NOTE | 2018-10-21 09:46 | BH.COMM ---
Communication Note - Communication with Client Communication Note: Pt no show/no called IOP today. Therapist called and left voicemail to check-in with pt. Therapist left on voicemail if pt does not call back by 1pm today therapist will call emergency contact to ensure everything is okay.
--- NOTE | 2018-10-22 09:05 | BH.SGPN.GN ---
Behaviors/Verbalizations/Mental Status: [] Pt eye contact fair, casually dressed, motor activity appropriate, speech normal rate and tone, mood depressed, constricted affect, thoughts linear and intact, no evidence of delusions or hallucinations. Reviewed client?s symptom tracker, no signs of suicidal ideation, plan, or intent as of today. Client Response/Progress/Benefit: []Pt listened attentively to others and shared thoughts and feelings. Pt reported one positive getting back to work. However, pt identified returning to work has increased stress because feeling overwhelmed and behind with his tasks. Pt shared he hasn't been sleeping very well past few days which he believes is contributing to increased problems. Pt initially struggled with identifying another positive, but eventually identified spending time with his kids as a positive. Pt seemed to benefit from expressing thoughts and feelings. Pt showing decompensation AEB pt reporting increased stressors due to not sleeping well. Pt to continue IOP level of care to increase mood stability, improve daily functioning, and prevent decompensation. Narrative Note: []
--- NOTE | 2018-10-22 10:10 | BH.SGPN.GN ---
Behaviors/Verbalizations/Mental Status: [] Eye contact is good. Motor activity is appropriate. Appearance is casual. Speech is Appropriate. Mood is anxious. Affect is congruent. Thoughts are linear and logical. No evidence of psychosis. Client Response/Progress/Benefit: [] Pt was an active participant in group discussion and activity. Worked with the group on defining coping skills as methods or strategies that one uses to manage stressful situations and emotions. Group brainstormed some internal and external coping skills. Along with the group discussed how inappropriate coping skills (isolation) effect us and at times can cause more problems. Pt reported that with his past in addiction and mental health he tends to isolate and ruminate on issues rather than working through them. Also along with other group members discussed the ways in which appropriate coping skills help us manage our emotions and improve wellness. Reports that it would be beneficial to utilize support options and apply coping skills when starting to get overwhelmed not just when completely overwhelmed. Progress noted as pt was able to identify internal and external coping skills as well as the effect of good and bad coping skills have on our well-being. Will continue in IOP to maintain gains with expected discharge this week. Narrative Note: []
--- NOTE | 2018-10-24 09:07 | BH.SGPN.GN ---
Behaviors/Verbalizations/Mental Status: [] Pt eye contact good, casually dressed, motor activity appropriate, speech normal rate and tone, mood euthymic, congruent affect, thoughts linear and intact, no evidence of delusions or hallucinations. Reviewed client?s symptom tracker, no signs of suicidal ideation, plan, or intent as of today. Client Response/Progress/Benefit: []Pt listened attentively to peers and shared thoughts and feelings. Pt reported a positive is [facility], but pushed himself to go see his family. Pt shared he was happy that he was able to get himself out of the house. Pt reported another positive is he was able to get a good night's sleep, which is something he has struggled with past few nights. 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 Pt noted progress he has made since starting [facility] level of care. Pt to discharge from [facility] today due to making progress on his treatment goals. Narrative Note: []
--- NOTE | 2018-10-24 10:15 | BH.SGPN.GN ---
Behaviors/Verbalizations/Mental Status: []Client alert and oriented, neatly dressed and groomed. Eye contact good. Motor activity appropriate. Speech within normal limits. Affect constricted, mood anxious. Thoughts linear, logical, no signs of hallucinations or delusions. Client Response/Progress/Benefit: []Client responded well to session, engaged in activity and discussion. Client stated goals are important for improving mental health because they ?give you something to focus on.? However, client shared the process of achieving one?s goals is more important than the end result. Client took notes as the group discussed SMART goals. Client engaged in the activity and at times tried to get the group to set unrealistic goals. The group processed how unrealistic expectations can negatively impact one?s mental health and self-esteem. Client appeared to benefit from learning about SMART goals. Client to discharge from [facility] today.
--- NOTE | 2018-10-24 10:59 | BH.AFTERPLAN ---
Aftercare Plan - Demographics Treatment End Date:: 10/24/18 Psychiatrist:: Zakiya Hilton Psychiatrist Office #:: [phone] [facility] Therapist:: Kyung Hong Therapist Phone #:: [phone] - Medications Home Medications: Home Medications Lamotrigine [Lamictal] 25 mg PO DAILY 10/03/18 - Plan Details Progress/Aftercare Plan Details:: You have shown progress with improved awareness of anxious and distorted thought patterns. Progress shown with improved mood stability and improved regulation of emotions. Your outlook on life has improved drastically compared to when you first started the program. You are able to notice positives easier and have hope for your future. Plan for aftercare is to follow up with your already established outpatient psychiatrist, schedule appointment with Dr. Merida for counseling and look into support groups to attend for additional support. Strategies for Success:: 1. Increase social connections! Look into attending AA again for weekly support and to help you get out of the house. 2. Find activities and events to keep you from isolating. Remember isolation can easily result in reverting back to sleeping as your coping skill. 3. Follow through with outpatient counseling and psychiatry. 4. Continue to be aware of distorted and unhealthy thought patterns. 5. Remember to use your healthy coping skills (coloring, mindfulness, exercise, getting out of the house). 6. Refer back to [facility] binder to refresh yourself of skills you've learned. - Appointments Appointments/Referrals to Other Services:: 1. Psychiatry appointment on November 10. 2. Call to schedule appointment with Dr. Merida. 3. Encourage you to attend AA meetings again!
--- NOTE | 2018-10-24 12:16 | PCM.PN.BLA ---
Progress Note Patient is seen in follow-up for bipolar 2 disorder, anxiety, PTSD, alcohol use disorder. History has been obtained per interview with patient, discussion with staff, review of chart. Case discussed with treatment team. Chief complaint Mood cycling and anxiety Interim history Patient reports overall feeling better. Some ongoing mood cycling but decreased intensity. Reports some hypomanic symptoms of restlessness, inability to sit still, and decreased sleep lasting a few days followed by a mild feeling of discontent with depressive symptoms and isolative behavior. Reports ruminative anxiety about ongoing symptoms. No suicidal or homicidal ideation. No symptoms consistent with psychosis. Remains forward thinking. Sleeping from midnight until 7:45 AM on IOP days. Appetite normal. Denies nausea vomiting or diarrhea. Reduce caffeine to for cold bruise per day and 3 cans of soda daily. Maintain sobriety. Denies ingestion of alcohol. Continues to chew tobacco. Denies illicit drug use. Mental status exam Alert and oriented . No acute distress. Ambulatory with normal gait and station. Appears stated age. Casually dressed and groomed. Appropriate hygiene. Cooperative with interview. Good eye contact. No psychomotor agitation or retardation. Mood mildly depressed. Affect congruent. Speech is clear and with regular rate and rhythm. Language fluent. Thought process organized. Associations logical. Thought content significant for ruminative anxiety. No suicidal or homicidal ideation related or detected. No symptoms consistent with psychosis noted or detected. Immediate recent and remote memory grossly intact. Attention and concentration are fair. Estimated intelligence and fund of knowledge average. Judgment and insight improving. Diagnosis Bipolar 2 disorder-cannot rule out substance-induced mood disorder Anxiety PTSD Alcohol use disorder-remission Nicotine use disorder (chewing tobacco) Continue IOP with focus on relapse prevention. Structured setting is necessary to maintain gains and prevent decompensation. Risk-benefit alternative of medications discussed with patient. Patient acknowledges understanding. Increase Lamictal 250 mg p.o. daily. Patient reports he has not yet started the 150 mg. Continue Latuda 20 mg daily. No evidence of EPS. Continue Vistaril as needed. Continue Adderall as prescribed by outpatient psychiatric provider. Encourage follow-up with outpatient psychiatric providers including Kyung Hernandez and Meghan Merida. Encouraged ongoing alcohol abstinence. Encouraged nicotine cessation. 16 minutes of Insight oriented psychotherapy provided regarding relapse prevention.. Patient acknowledges understanding and is in agreement with plan. Feels able to maintain safety. Agrees to seek help or emergency care if feeling unsafe to self or others. Encouraged reading the book calm seas.
--- NOTE | 2018-10-24 12:19 | BH.IGGP_ITS ---
Aftercare Plan - Demographics Treatment End Date:: 10/24/18 Psychiatrist:: Zakiya Hilton Psychiatrist Office #:: [phone] [facility] Therapist:: Kyung Hong Therapist Phone #:: [phone] - Medications Home Medications: Home Medications Lamotrigine [Lamictal] 25 mg PO DAILY 10/03/18 - Plan Details Progress/Aftercare Plan Details:: You have shown progress with improved awareness of anxious and distorted thought patterns. Progress shown with improved mood stability and improved regulation of emotions. Your outlook on life has improved drastically compared to when you first started the program. You are able to notice positives easier and have hope for your future. Plan for aftercare is to follow up with your already established outpatient psychiatrist, schedule appointment with Dr. Merida for counseling and look into support groups to attend for additional support. Strategies for Success:: 1. Increase social connections! Look into attending AA again for weekly support and to help you get out of the house. 2. Find activities and events to keep you from isolating. Remember isolation can easily result in reverting back to sleeping as your coping skill. 3. Follow through with outpatient counseling and psychiatry. 4. Continue to be aware of distorted and unhealthy thought patterns. 5. Remember to use your healthy coping skills (coloring, mindfulness, exercise, getting out of the house). 6. Refer back to [facility] binder to refresh yourself of skills you've learned. - Appointments Appointments/Referrals to Other Services:: 1. Psychiatry appointment on November 10. 2. Call to schedule appointment with Dr. Merida. 3. Encourage you to attend AA meetings again!
--- NOTE | 2018-10-24 12:32 | PN_ITS ---
Progress Note Patient is seen in follow-up for bipolar 1F 31.9, generalized anxiety disorder, borderline personality disorder. History is been obtained per interview with patient, discussion with staff, review of chart. Case discussed with treatment team. Chief complaint - mood symptoms and anxiety I am not dealing with some stress and the holidays Interim history Patient reports mixed mood symptoms. She has complained of some manic symptoms including some impulsive spending, urges to go to the store in the middle of the night, decreased appetite and disrupted sleep over the past week. She also notes some increased depressive symptoms including increased suicidal thoughts. No suicide plan or intent. I am not at risk. Feels able to maintain safety. No homicidal ideation. No symptoms consistent with psychosis. Reports ruminative anxiety about ongoing symptoms. Sleeping from midnight or 1 AM until about 7 AM. Appetite fair. Denies nausea vomiting or diarrhea. Consuming 1 caffeinated drinks daily. Denies ingestion of alcohol. Mental status exam Alert and oriented . No acute distress. Ambulatory with normal gait and statio n. Appears stated age. Casually dressed and groomed. Appropriate hygiene. Cooperative with interview. Good eye contact. No psychomotor agitation or retardation. Mood dysphoric. Affect congruent. Speech is clear and with regular rate and rhythm. Language fluent. Thought process organized. Associations logical. Thought content significant for ruminative anxiety and themes of depression. No suicidal or homicidal ideation related or detected.. No symptoms consistent with psychosis noted or detected. Immediate recent and remote memory grossly intact. Attention and concentration are fair. Estimated intelligence and fund of knowledge average. Judgment and insight improving. Labs TSH 3.9 Vitamin D 29 Diagnosis Bipolar 1 disorder F 31.9 Generalized anxiety disorder Borderline personality disorder Disordered eating Vitamin D deficiency Plan Continue IOP as the structured setting is necessary to prevent decompensation. Risk-benefit alternative of medications discussed with patient. Patient acknowledges understanding. Continue Seroquel 150 mg p.o. nightly. Continue Lamictal 300 mg p.o. daily. Decrease Wellbutrin XL to 150 mg p.o. daily for 2 days then discontinue. Start lithium ER 450 mg p.o. nightly. [place] may improve mood stabilization and decrease suicidal thinking. Requisition provided for lab work including lithium level, CMP, TSH. Encouraged vitamin D supplement. Follow-up with Dr. Everett as scheduled November 20. Encouraged ongoing caffeine reduction. Patient acknowledges understanding and is in agreement with plan. Feels able to maintain safety. Agrees to seek help or emergency care if feeling unsafe to self or others. 18 minutes of Insight oriented psychotherapy provided regarding mood regulation. Encouraged reading calm seas.
--- NOTE | 2018-10-24 15:27 | BH.MDN ---
Multi-Disciplinary Note - Note 45-min Individual Time Started:: 11:20 Date: 10/24/18 Purpose of session/treatment goals addressed:: Purpose of session was to assess current symptoms and stressors. Other topics included solidifying aftercare, identifying progress, and discussing strategies to help pt maintain progress. Eye Contact:: Good Motor Activity:: Appropriate Appearance:: Neat Speech:: Appropriate Mood:: Anxious Affect:: Congruent Thoughts:: Linear, No evidence of hallucinations/delusions noted Staff Interventions:: Therapist used open ended questions to elicit pt's current symptoms and stressors. Therapist processed anxiety around making phone calls to friends and work accounts. 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 Therapist explored pt's thoughts about treatment progress while in IOP. Worked with pt to identify strategies to help him maintain success. Provided copy of aftercare plan created collaboratively. Client Response:: Pt reported he is doing better emotionally compared to Saturday. Pt shared he has had two nights of better sleep. Pt reported he has seen a lot of progress in himself compared to when he first started the program. Pt shared prior to starting IOP he was sleeping all day, everyday for a month. Pt reported he doesn't use sleep as his escape or coping skill anymore. Pt shared he is more productive throughout his day and has started back to work. Pt reported has a better outlook on life compared to when he first started IOP. Pt shared when he first started the program he was hopeless and saw no future, but now can recognize positives and is more hopeful for his future. Pt reported he is still struggling with reaching out to supports or calling his accounts for work. Pt shared he is anxious about what to say to people when they ask what has been going on with him. Pt worked with therapist on creating a script he can say to his work accounts to help him reduce anxiety about making the initial call. Pt shared he recognizes it's important for him to keep working on building his support network. Pt identified other strategies to be successful post discharge is to follow up with counseling, find a support group to attend, and get out of his house. Pt agreeable with aftercare plan. Risks/Concerns:: Pt denies suicidal ideation, plan or intention to date. Progress Toward Goals/Plan:: Pt has demonstrated progress with reporting improved mood stability, decreased depression, and increased awareness of his unhelpful thought patterns. 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 Pt is no longer using sleeping as his escape or coping skill. Improved outlook for his life, motivation to continue to get better. Plan is for pt to discharge from [facility] level of care with encouragment to follow up with outpatient counseling, psychiatry, and start attend AA meetings again for additional support. Time Stopped:: 12:00
--- NOTE | 2018-10-24 16:01 | BH.MDN_ITS ---
Multi-Disciplinary Note - Note 45-min Individual Time Started:: 11:20 Date: 10/24/18 Purpose of session/treatment goals addressed:: Purpose of session was to assess current symptoms and stressors. Other topics included solidifying aftercare, identifying progress, and discussing strategies to help pt maintain progress. Eye Contact:: Good Motor Activity:: Appropriate Appearance:: Neat Speech:: Appropriate Mood:: Anxious Affect:: Congruent Thoughts:: Linear, No evidence of hallucinations/delusions noted Staff Interventions:: Therapist used open ended questions to elicit pt's current symptoms and stressors. Therapist processed anxiety around making phone calls to friends and work accounts. 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 Therapist explored pt's thoughts about treatment progress while in IOP. Worked with pt to identify strategies to help him maintain success. Provided copy of aftercare plan created collaboratively. Client Response:: Pt reported he is doing better emotionally compared to Saturday. Pt shared he has had two nights of better sleep. Pt reported he has seen a lot of progress in himself compared to when he first started the program. Pt shared prior to starting IOP he was sleeping all day, everyday for a month. Pt reported he doesn't use sleep as his escape or coping skill anymore. Pt shared he is more productive throughout his day and has started back to work. Pt reported has a better outlook on life compared to when he first started IOP. Pt shared when he first started the program he was hopeless and saw no future, but now can recognize positives and is more hopeful for his future. Pt reported he is still struggling with reaching out to supports or calling his accounts for work. Pt shared he is anxious about what to say to people when they ask what has been going on with him. Pt worked with therapist on creating a script he can say to his work accounts to help him reduce anxiety about making the initial call. Pt shared he recognizes it's important for him to keep working on building his support network. Pt identified other strategies to be successful post discharge is to follow up with counseling, find a support group to attend, and get out of his house. Pt agreeable with aftercare plan. Risks/Concerns:: Pt denies suicidal ideation, plan or intention to date. Progress Toward Goals/Plan:: Pt has demonstrated progress with reporting improved mood stability, decreased depression, and increased awareness of his unhelpful thought patterns. 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 Pt is no longer using sleeping as his escape or coping skill. Improved outlook for his life, motivation to continue to get better. Plan is for pt to discharge from [facility] level of care with encouragment to follow up with outpatient counseling, psychiatry, and start attend AA meetings again for additional support. Time Stopped:: 12:00
--- NOTE | 2018-10-24 16:10 | BH.DS ---
Discharge Summary - Demographics Date of Admission:: 09/03/18 Discharge Date: 10/24/18 Presenting Problems at Admission:: Patient referred by Meghan Merida to the behavioral health [facility] for evaluation and treatment of mood symptoms and anxiety. Patient depression had been worsening for past 6 months. At time of admission had several psychosocial stressors with recent divorce and no longer attending AA since move to [place] after attending AA consistently for a year. He endorsed a depressed mood, isolative behavior, anhedonia, decreased appetite and sleep disruption. Reported spent 18 hours in bed for a two week span prior to admssion to [facility]. Discharge Diagnoses:: F31.81 Bipolar 2 disorder-cannot rule out substance-induced mood disorder. Anxiety. PTSD. Alcohol use disorder-remission. Nicotine use disorder (chewing tobacco) Reason for Discharge:: Pt has made signficant progress on treatment goals and no longer meets medical necessity for [facility] level of care. - Treatment Progress During Treatment & Response: Pt has made progress on his treatment goals of increasing mood stability, decreasing depressive symptoms and decreasing anxious symptoms AEB scores on DSM 5 cross cutting measure. Pt's intake score on the DSM 5 measure for nell was a 7 out of 8 with 8 being severe. Pt's discharge score for nell was a 4 out of 8 which demonstrates a decrease in manic symptoms. Pt's intake score for depression on DSM 5 measure was a 8 out of 8 with 8 being severe and his discharge score is a 4 out of 8 which shows a signficiant decrease in symptoms. Pt's intake score on DSM 5 measure for anxiety was a 12 out of 12 and his discharge score is a 7 out of 12, which also demonstrates a decrease in anxiety. Pt reports improved outlook on life, able to note positives and has hope for a positive future. 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 Pt's overall daily funtioning has improved. Pt's response to treatment has been inconsistent. Pt struggled with attending consistently at times, which may have impacted treatment progress. Pt at times would be engaged during group session AEB contributions to discussion, listening to others, and engaged during activiites. However, pt struggled with following through with homework and generalizing skills learned at times. Issues Still to be Addressed:: Pt could benefit from continued focus on increasing his social support network, given pt has difficulty calling others. Pt needs continued work on identifying and challenging distorted thought patterns. Pt could benefit from continued focus on decreasing anxiety which seems to hinder pt's ability to build his support network. pt also could benefit from finding extracurricular activities to give him opportunity to meet other people. Discharge Recommendations/Instructions:: Pt is recommended to follow up with established psychiatrist for scheduled appointment on November 10. Pt did not follow through with making appointment with his outpatient counselor, pt agrees to call and schedule appointment for next week. Pt also recommended to reengage in AA support meetings for additional support. Discharge Handout: Complete Discharge Handout with client on aftercare options and continuity of care.
--- NOTE | 2018-10-24 16:29 | BH.DS_ITS ---
Discharge Summary - Demographics Date of Admission:: 09/03/18 Discharge Date: 10/24/18 Presenting Problems at Admission:: Patient referred by Meghan Merida to the behavioral health [facility] for evaluation and treatment of mood symptoms and anxiety. Patient depression had been worsening for past 6 months. At time of admission had several psychosocial stressors with recent divorce and no longer attending AA since move to [place] after attending AA consistently for a year. He endorsed a depressed mood, isolative behavior, anhedonia, decreased appetite and sleep disruption. Reported spent 18 hours in bed for a two week span prior to admssion to [facility]. Discharge Diagnoses:: F31.81 Bipolar 2 disorder-cannot rule out substance- induced mood disorder. Anxiety. PTSD. Alcohol use disorder-remission. Nicotine use disorder (chewing tobacco) Reason for Discharge:: Pt has made signficant progress on treatment goals and no longer meets medical necessity for [facility] level of care. - Treatment Progress During Treatment & Response: Pt has made progress on his treatment goals of increasing mood stability, decreasing depressive symptoms and decreasing anxious symptoms AEB scores on DSM 5 cross cutting measure. Pt's intake score on the DSM 5 measure for nell was a 7 out of 8 with 8 being severe. Pt's discharge score for nell was a 4 out of 8 which demonstrates a decrease in manic symptoms. Pt's intake score for depression on DSM 5 measure was a 8 out of 8 with 8 being severe and his discharge score is a 4 out of 8 which shows a signficiant decrease in symptoms. Pt's intake score on DSM 5 measure for anxiety was a 12 out of 12 and his discharge score is a 7 out of 12, which also demonstrates a decrease in anxiety. Pt reports improved outlook on life, able to note positives and has hope for a positive future. 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 Pt's overall daily funtioning has improved. Pt's response to treatment has been inconsistent. Pt struggled with attending consistently at times, which may have impacted treatment progress. Pt at times would be engaged during group session AEB contributions to discussion, listening to others, and engaged during activiites. However, pt struggled with following through with homework and generalizing skills learned at times. Issues Still to be Addressed:: Pt could benefit from continued focus on increasing his social support network, given pt has difficulty calling others. Pt needs continued work on identifying and challenging distorted thought patterns. Pt could benefit from continued focus on decreasing anxiety which seems to hinder pt's ability to build his support network. pt also could benefit from finding extracurricular activities to give him opportunity to meet other people. Discharge Recommendations/Instructions:: Pt is recommended to follow up with established psychiatrist for scheduled appointment on November 10. Pt did not follow through with making appointment with his outpatient counselor, pt agrees to call and schedule appointment for next week. Pt also recommended to reengage in AA support meetings for additional support. Discharge Handout: Complete Discharge Handout with client on aftercare options and continuity of care.
--- NOTE | 2018-12-05 15:28 | BH.MDN_ITS ---
Multi-Disciplinary Note - Note 60-min Individual Time Started:: 11:33 Date: 10/22/18 Purpose of session/treatment goals addressed:: Purpose of session was to assess current symptoms and stressors. Other topics: reviewed healthy coping skills, discussed importance of sleep routine, discussed aftercare. Eye Contact:: Fair Motor Activity:: Restless Appearance:: Neat Speech:: Appropriate Mood:: Anxious, Depressed Affect:: Flat Thoughts:: Linear, Logical, No evidence of hallucinations/delusions noted Staff Interventions:: Therapist used open ended questions to elicit pt's current symptoms and stressors. Therapist processed pt's current stressors of not sleeping very well and feeling behind at work. Therapist inquired pt's current sleep schedule/routine and provided education on healthy sleep habits. Therapist encouraged pt to develop an appropriate sleep routine. Therapist reviewed healthy coping skills with pt to help with managing depressive and anxious symptoms. Therapist started discussion about discharge from program and aftercare plans. Homework provided for pt to contact outpatient provider to schedule counseling appointment for follow up care. Client Response:: Pt reported he is currently having a tough time because he hasn't been able to sleep for the past several days very much. Pt shared he is sleeping on average 2-3 hours each night. Pt reported initially he was able to function okay on the limited amount of sleep, but now he is starting to struggle. When asked about sleep routine, pt shared he doesn't really having any routine or schedule. Pt connected with the different strategies that could help improve his sleep. Pt agreeable to identify a realistic sleep routine for himself. Pt reported his other stressor is feeling overwhelmed at his job now that he has returned. Pt shared he is noticing that he is continuing to struggle with avoiding the work tasks that make him most anxious. Pt recognized if he doesn't face those tasks he will revert back to his old way of dealing with stress and anxiety. Pt admitted he hasn't been utilizing the healthy skills he has learned throughout the program. Pt responded well to reviewing healthy coping skills and agreed to read over handout provided about guided meditation, grounding tools, and breathing techniques. Pt agreeable to contact his outpatient provider to schedule next counseling appointment. Risks/Concerns:: Pt denies suicidal ideation, plan or intention to date. Progress Toward Goals/Plan:: Pt showing progress with recognizing his warning signs that he is starting to decompensate due to decreased sleep. Pt verbalizes willingness to create sleep routine to help him get into a healthy sleep pattern. Pt progress could be hindered by pt admitting to not utilizing healthy skills on a consistent basis. Plan is for pt to discharge from [facility] this week. Time Stopped:: 12:28
== END 2018-10-24 14:00 | disposition home or self-care (01) ==
LOC: BHIOP 09:00
PROVIDERS: Visit Provider Psychiatry & Neurology Psychiatry
DX: F31.9 Bipolar disorder, unspecified (principal); F41.1 Generalized anxiety disorder; F60.3 Borderline personality disorder; E55.9 Vitamin D deficiency, unspecified
CPT/HCPCS: H0035; 90832; 90834; 90837; 90853

== ENCOUNTER 2018-11-24 01:05 | Emergency (ER) | payer BC, SELFPAY ==
[2018-11-24 01:05] VITALS: BP 120/91; PULSE 116; RESP 18; TEMP 36.4; O2SAT 100; BMI 21.0
[2018-11-24] MEDS: Ondansetron 4 MG/2 ML Vial IV (01:54)
[2018-11-24] MEDS: Ketorolac 30 MG/ML Syringe IV (01:55)
[2018-11-24] MEDS: 0.9% Normal Saline 1,000 ML 1000 ML IV (01:55)
[2018-11-24 02:40] LABS: Absolute Lymphocyte Count 0.33 X10^3/ul (0.83-4.51); Absolute Neutrophil Count 12.1 X10^3/uL (2.0-7.7); Basophil# 0.02 X10^3/uL; Basophil% 0.2 % (0-1); Eosinophil# 0.07 X10^3/uL; Eosinophils% 0.5 % (0-5); Hematocrit 49.8 % (40-54); Lymphocyte # 0.33 X10^3/ul (4.0); Lymphocyte % 2.5 % (19-41); Mean Corp Hgb Conc 36.5 g/gl (32-36); Mean Corpuscular Hgb 31.9 pg (27.0-32.0); Mean Corpuscular Volume 87.2 fL (80-94); Mean Platelet Vol. 8.5 fl (6.2-12.0); Monocyte# 0.82 X10^3/uL; Monocyte% 6.2 % (0-10); Neutrophil # 12.06 X10^3/uL (2.7-7.7); Neutrophil % 90.4 % (47-70); Platelet Count 181 K/mm3 (150-450); RBC Distribution Width CV 12.6 % (11.6-14.6); Red Blood Count 5.71 M/mm3 (4.6-6.2); White Blood Count 13.3 K/mm3 (4.4-11.0)
[2018-11-24 02:42] LABS: Differential Indicated SCAN CRITERIA MET; Hemoglobin 18.2 g/dl (13.0-16.5); POSITIVE COUNT NO; POSITIVE DIFFERENTIAL YES; POSITIVE MORPHOLOGY NO
[2018-11-24 02:56] LABS: Anion Gap 5 (5-15); BUN 15 mg/dL (7-18); BUN/Creat Ratio 13.8 RATIO (10-20); Calcium,Total 8.3 mg/dL (8.5-10.1); Chloride 105 mmol/L (98-107); Creatinine, Serum 1.09 mg/dL (0.70-1.30); EST Glomerular Filtration Rate 83 mL/min (>60); Est Glom Filt Rate - Afr Amer 100 mL/min (>60); Estimated Creatinine Clearance 88.21 ml/min; Glucose 101 mg/dL (74-106); Potassium 5.3 mmol/L (3.5-5.1); Sodium Level 139 mmol/L (136-145)
[2018-11-24] MEDS: 0.9% Normal Saline 1,000 ML 999 ML IV (02:59)
--- NOTE | 2018-11-24 03:05 | ED.VISSUMM ---
- ER Visit Summary Date of Service: 11/24/18 Chief Complaint: Vomiting History of Present Illness: The patient is a 33 M with no primary care physician. He reports approximately 3-1/2 hours ago he became nauseated and has been vomiting. Reports he had 4-5 sessions of vomiting. No blood in his emesis. He states that he has a epigastric pressure that is 8 out of 10 at worst and 6 out of 10 currently. It is worsened by laying down. Is relieved by vomiting. No diarrhea. His last bowel was yesterday. Has had no melena or hematochezia. No dysuria or frequency. He is passing flatus. Patient reports that his daughter was sick with similar symptoms earlier this week. He has not been camping out of the country. No recent antibiotic use. No possible bad food exposure. Does not drink well water. Physical Examination: Vitals: Stable. Afebrile. General: Well-nourished and well-developed. Head: Normocephalic atraumatic. Neck: Supple, no lymphadenopathy. No JVD. Nontender. Cardiovascular: Regular rate and rhythm. No murmurs. Respiratory: No respiratory distress. Clear to auscultation bilaterally. Abdominal: Soft, nontender, nondistended, normal bowel sounds. No guarding, rebound, or peritoneal signs. Back: Nontender. Extremities: Nontender, no edema. Skin: Normal color, no rash. Neurologic: Alert and oriented ?3. Cranial nerves II through XII are intact. Normal strength and sensation. Psych: Normal affect. Test Results: CBC is marked for a white count of 13.3, hemoglobin of 18.2, segmented neutrophils of 90, lymphocytes 3. Chem-7 is more for potassium of 5.3 (moderate hemolysis) and calcium 8.3. Emergency Department Course and Treatment: Patient had an IV placed. He was given dose of Zofran and Toradol IV. He was given a liter normal saline. He reports that he feels much improved. Treatment Plan: Patient be discharged with Zofran. Instructed to follow-up with Dr. Bangura in 1-2 days if not improving. Return to the emergency department for any worsening symptoms. Disposition: To home in improved and stable condition. Impression: 1. Vomiting. This note was generated with [employer] dictation software. It may contain incorrect words, spelling, and punctuation that were not noted in review of the chart prior to signing ED Disposition - Plan for ED Patient: Disposition: Home or Assisted Living Chief Complaint: Nausea/Vomiting Instructions: ED Nausea Vomiting Prescriptions: Ondansetron [Zofran Odt] 4 mg PO Q8H PRN PRN #10 tablet PRN Reason: Nausea Referrals: Dipti Bangura DO [STAFF PHYSICIAN] - 1-2 Days if not improving
[2018-11-24 03:22] VITALS: BP 124/82; PULSE 107; O2SAT 99
[2018-11-24] MEDS: Ondansetron ODT 4 MG Tablet PO (03:23)
[2018-11-24 10:06] LABS: Pathologist Review Reviewed
== END 2018-11-24 03:26 | disposition home or self-care (01) ==
PROVIDERS: Emergency Provider Emergency Medicine
DX: R11.2 Nausea with vomiting, unspecified (principal); I10 Essential (primary) hypertension; F31.9 Bipolar disorder, unspecified; F41.9 Anxiety disorder, unspecified; F42.9 Obsessive-compulsive disorder, unspecified; F90.9 Attention-deficit hyperactivity disorder, unspecified type; F17.220 Nicotine dependence, chewing tobacco, uncomplicated; Z79.899 Other long term (current) drug therapy
CPT/HCPCS: 80048; 85025; 96361; 96374; 96375; 99283; A4216; J2405